=== PATIENT | female | born 1930 ===

== ENCOUNTER 2016-08-27 21:59 | Emergency (ER) | payer MEDICARE, MEDICAID ==
[2016-08-27 23:20] LABS: SPECIFIC GRAVITY 1.015 (1.001-1.030); URINE APPEARANCE HAZY; URINE BILIRUBIN NEGATIVE (NEGATIVE); URINE BLOOD 2+ (NEGATIVE); URINE COLOR YELLOW; URINE GLUCOSE (UA) NEGATIVE (NEGATIVE); URINE LEUKOCYTE ESTERASE NEGATIVE (NEGATIVE); URINE NITRITE NEGATIVE (NEGATIVE); URINE PROTEIN NEGATIVE (NEGATIVE); URINE UROBILINOGEN NORMAL (0-1 mg/dl)
[2016-08-27 23:30] LABS: URINE WBC 0-1 /hpf
[2016-08-27 23:31] LABS: URINE BACTERIA 0; URINE EPITHELIAL CELLS 0-1 /hpf
[2016-08-27 23:49] LABS: CALCIUM 9.4 mg/dL (8.6-10.3)
[2016-08-27 23:50] LABS: ALB/GLOB RATIO 1.4 (>1.0); ALBUMIN 4.1 gm/dL (3.5-5.7)
[2016-08-28 00:19] LABS: HEMATOCRIT 36.1 % (37.0-47.0); HEMOGLOBIN 11.6 gm/l (12.0-16.0)
[2016-08-28 00:20] LABS: MEAN CELL VOLUME 86.4 fl (81.0-99.0); MEAN CORPUSCULAR HEMOGLOBIN 27.8 pg (27.0-31.0); MEAN CORPUSCULAR HGB CONC 32.1 g/dl (33.0-37.0)
[2016-08-28 00:21] LABS: MEAN PLATELET VOLUME 9.1 fl (7.4-10.4); PLATELET COUNT 162 K/mm3 (130-400)
[2016-08-28 00:22] LABS: IMM NEUT% 0.3 % (0-1); LYMPH % 4.9 % (15-45); NEUT % 89.7 % (43-75)
[2016-08-28 00:23] LABS: ABSOLUTE NEUTROPHIL COUNT 9.2 K/mm3 (1.8-7.7); BASO % 0.1 % (0.2-1.0); LYMPH # 0.5 (1.0-4.8); MONO # 0.5 (0.0-0.8)
[2016-08-28 00:24] LABS: RED CELL DISTRIBUTION WIDTH 13.6 % (11.5-14.5)
[2016-08-28] MEDS ORDERED: SODIUM CHLORIDE 0.9% 500 ML ONE (00:28)
[2016-08-28] MEDS ORDERED: ACETAMINOPHEN 325 MG TABLET ONE (03:24)
--- NOTE | 2016-08-28 07:57 | US ---
VENOUS ULTRASOUND OF EXTREMITY Indications: Left lower extremity pain and swelling. Comparison: None FINDINGS: Multiple grayscale, color-flow and duplex Doppler images during left lower extremity DVT ultrasound are obtained from the common femoral vein down through to the peroneal and posterior tibial veins. DEEP VENOUS THROMBOSIS: None. COMMON FEMORAL VEIN: Normal. PROXIMAL FEMORAL VEIN: Normal. MID TO DISTAL FEMORAL VEIN: Normal. POPLITEAL VEIN: Normal. PROXIMAL CALF VEINS: Normal. IMPRESSION: No deep venous thrombosis of the left leg. Preliminary report was provided by [facility] [employer] at approximately 0310 hours on 08/28/2016.
== END 2016-08-28 03:38 | disposition home or self-care (01) ==
LOC: ED 21:59
DX: M79.604 Pain in right leg (principal); M79.605 Pain in left leg; E86.0 Dehydration; R68.83 Chills (without fever); I10 Essential (primary) hypertension
CPT/HCPCS: 83880; 85025; 80053; 83735; 84100; 81001; 99284; 96360; 93005; 93971; 99283; A9270; J7040